=== PATIENT | female | born 1995 | race Caucasian/White ===

== ENCOUNTER 2017-08-29 19:10 | Emergency (ER) | payer OTHER ==
[~2017-08-29] VITALS: Ht 165.1 cm; Wt 47.6 kg
[2017-08-29 19:20] VITALS: BP 110/70
[2017-08-29 20:36] LABS: BASOPHILS % (AUTO) 0.7 % (0.0-2.0); EOSINOPHILS # (AUTO) 0.2 K/uL (0-0.4); HEMATOCRIT 39.2 % (36-48); HEMOGLOBIN 13.3 g/dL (12.0-16.0); LYMPHOCYTES # (AUTO) 1.6 K/uL (2.5-16.5); LYMPHOCYTES % (AUTO) 31.2 % (20.5-51.1); MEAN CORPUSCULAR HEMOGLOBIN 31 pg (27-31); MEAN CORPUSCULAR HGB CONC 34 g/dL (33-37); MEAN CORPUSCULAR VOLUME 90.6 fL (80-94); MONOCYTES # (AUTO) 0.5 K/uL (0.8-1.0); MONOCYTES % (AUTO) 10.1 % (1.7-9.3); NEUTROPHILS # (AUTO) 2.9 K/uL (1.8-7.7); PLATELET COUNT (AUTO) 202 K/uL (140-450); RED BLOOD CELL COUNT(AUTO) 4.33 MIL/uL (4.20-5.40); WHITE BLOOD COUNT (AUTO) 5.2 K/uL (4.8-10.8)
[2017-08-29] MEDS ORDERED: ONDANSETRON 4 MG ODT PO ONE (20:45)
[2017-08-29] MEDS ORDERED: DICYCLOMINE HCL LIQUID 20 MG, ALUMINUM HYD/MAG/SIMETHICONE 30 ML, LIDOCAINE VISCOUS 2% ... PO ONE ×3 (20:45)
[2017-08-29 20:54] LABS: ALBUMIN 3.6 g/dL (3.4-5.0); ANION GAP 11.8 (8-16); CREATININE 0.6 mg/dL (0.6-1.3); POTASSIUM 3.8 mmol/L (3.5-5.1); TOTAL BILIRUBIN 0.7 mg/dL (0.0-1.0)
[2017-08-29 21:50] VITALS: BP 112/64
== END 2017-08-29 21:50 | disposition home or self-care (01) ==
LOC: MED 19:10
DX: R10.13 Epigastric pain (principal); R11.0 Nausea; R19.7 Diarrhea, unspecified
CPT/HCPCS: 36415; 80053; 81002; 81025; 83690; 85025; 99284; S0119

== ENCOUNTER 2018-12-21 15:31 | Emergency (ER) | payer OTHER ==
[~2018-12-21] VITALS: Ht 160 cm; Wt 49.9 kg
[2018-12-21 15:35] VITALS: BP 134/90
--- NOTE | 2018-12-21 15:39 | NUR ---
PT AMBULATED TO ER BED 03
--- NOTE | 2018-12-21 15:50 | NUR ---
PT BIB SELF FOR LEFT HAND LACERTION INBETWEEN THUMB AND INDEX FINGER. BLEEDING CONTROLLED AT THIS TIME. PT STATES SHE ACCIDENTALLY CUT HERSELF WITH A KNIFE APPROX 20MI [employer]. PT SITTING IN BED CALM, AND AWAKE.
[2018-12-21] MEDS ORDERED: LIDOCAINE MPF 1% 10 MG/ML VIAL INJ ONE (16:25)
[2018-12-21] MEDS ORDERED: IBUPROFEN 600 MG TAB PO ONE (16:50)
[2018-12-21 17:16] VITALS: BP 123/82
== END 2018-12-21 17:16 | disposition home or self-care (01) ==
LOC: MED 15:31
DX: S61.412A Laceration without foreign body of left hand, initial encounter (principal); W45.8XXA Other foreign body or object entering through skin, initial encounter; Y93.89 Activity, other specified; Y92.89 Other specified places as the place of occurrence of the external cause; Y99.8 Other external cause status
CPT/HCPCS: 12001; 90471; 90715; 99283; J2001

== ENCOUNTER 2018-12-28 12:17 | Emergency (ER) | payer OTHER ==
[~2018-12-28] VITALS: Ht 160 cm; Wt 49.9 kg
[2018-12-28 12:30] VITALS: BP 121/67
--- NOTE | 2018-12-28 13:04 | NUR ---
PT AMBULATED TO BED 09.
--- NOTE | 2018-12-28 13:36 | NUR ---
23F presents for suture removal on left hand, between the thumb and index finger. Had laceration to area on 12/21, had sutures placed here on same day and was told to come back for removal. No complaints. No signs of infection. PATIENT STATES PAIN OF 0/10 AT THIS TIME; VSS; PATIENT POSITIONED FOR COMFORT; HOB ELEVATED; BEDRAILS UP X1; BED DOWN. ER MD MADE AWARE OF PT STATUS.
--- NOTE | 2018-12-28 13:50 | NUR ---
Patient discharged with v/s stable by Dr. Shetty.
[2018-12-28 13:54] VITALS: BP 118/63
== END 2018-12-28 13:50 | disposition home or self-care (01) ==
LOC: MED 12:17
DX: S61.412D Laceration without foreign body of left hand, subsequent encounter (principal); X58.XXXD Exposure to other specified factors, subsequent encounter
CPT/HCPCS: 99283